=== PATIENT | male | born 1970 | race Caucasian/White ===

== ENCOUNTER → 2024-03-31 06:59 | Outpatient (REF) | payer BC, SELFPAY | LOC: MRI 3T 06:59 | PROVIDERS: ATTENDING PHYSICIAN Physical Medicine & Rehabilitation; FAMILY PHYSICIAN Family Medicine; REFERRING PHYSICIAN Chiropractor Rehabilitation | DX: M54.16 Radiculopathy, lumbar region (principal) | CPT/HCPCS: 72148 ==